=== PATIENT | female | born 1990 | race Two or more races ===

== ENCOUNTER 2024-10-27 10:54 | Emergency (ER) | payer MEDICAID, SELFPAY ==
[2024-10-27 11:18] VITALS: BP 146/87; PULSE 90; RESP 19; TEMP 37.3; O2SAT 99; BMI 34.7
--- NOTE | 2024-10-27 11:27 | XR_ITS ---
Examination: CT brain head without contrast. 2-D sagittal coronal reconstructions Date and time of exam:October 27, 2024 1138 hours INDICATIONS: Headaches vomiting beginning 2 days ago CTDI: vol (mGy):46.7 DLP: (mGycm):915 Technique: Multiple CT axial sections of the brain have been obtained, 5 mm slice thickness. Contrast has not been administered. 2-D sagittal, coronal reconstructions have been obtained Low dose protocols were performed. One or more of the following dose reduction techniques were used; automated exposure control, adjustment of the mA and/or KV according to patient size, use of iterative reconstruction technique. Findings: No significant ventricular enlargement. Intra-axial or extra-axial hemorrhage density is not seen. No mass effect or midline shift Basal cisterns are not remarkable. Fourth ventricle is midline. Cranial vault intact. Impression: Negative for acute hemorrhage, mass effect or midline shift Advise clinical correlation and follow-up accordingly
[2024-10-27 11:55] LABS: HCG Qualitative,Urine Negative
--- NOTE | 2024-10-27 12:21 | PD.EDHA ---
ED Headache RME/HPI General Chief Complaint: Headache Stated Complaint: LEON/VOMITING x 2 DAYS Time Seen by Provider: 10/27/24 11:16 Source: patient Arrival date/time: 10/27/24 10:54 This is a 34-year-old female presents to the emergency department with complaints of generalized headache. Patient does report that she had a head injury many years ago which resulted in a bump noted to the posterior aspect of her head. States since then she does have chronic headaches has never been diagnosed with migraines. does not take medication daily. Patient did not attempt any interventions or take any OTC medications prior to ED visit. Denies fever, chills no neck pain no meningeal symptoms. Mode of arrival: ambulatory Related Data Home Medications ?Medication ?Instructions ?Recorded ?Confirmed metformin 500 mg tablet 500 mg PO BID 07/18/18 09/07/18 vit no.95-ferrous 1 tab PO QDAY 08/01/18 09/07/18 fumarate 28 mg-folic acid 800 mcg tablet () Previous Rx's ?Medication ?Instructions ?Recorded ferrous sulfate 325 mg (65 mg 325 mg PO QDAY #30 tabs 01/01/14 iron) tablet Allergies Allergy/AdvReac Type Severity Reaction Status Date / Time No Known Allergies Allergy Verified 09/07/18 09:23 Review of Systems Review of Systems Systems Reviewed: All systems reviewed, normal except as documented Narrative Review of Systems: Gen: No fever, no chills, no weight loss, + intermittent occasional headaches EYES: No discharge, no visual changes, no pain HEENT: No ear pain, no congestion, no sore throat PULM: No shortness of breath, no cough, no congestion CV: No chest pain, no dyspnea on exertion, no palpitations GI: No nausea, no vomiting, no diarrhea, no pain, no constipation : No frequency, no urgency, no dysuria Musc/skel: No joint pain, no back pain Skin: No rash Psyc: No hallucinations, no depression Heme/Lymph: No easy bleeding or bruising tendencies Neuro: No weakness, ED Exam Narrative Physical exam: General: 34-year-old female awake and alert Sittiing in Exam table in no acute distress, answering questions appropriately HENT: normocephalic, mild alopecia noted, atraumatic, EOMI, PERRLA, moist mucous membranes Chest: chest wall is nontender Cardiac: regular rate and rhythm, normal S1 and S2, no murmurs, rubs, or gallops, capillary refill ?2 seconds Pulmonary: clear to auscultation bilaterally, no wheezing, crackles, or rhonchi Abdominal: active bowel sounds, soft, nontender, nondistended Neuro: A&OX3, CN II-XII intact, sensation grossly intact bilaterally in UE and LE. Skin: no rashes, no ecchymosis Ext: no lower extremity edema Course Quality Measures none Orders Category Date Time Status CT head/brain wo con Stat Exams 10/27/24 11:27 Completed HCG Qualitative,Urine Stat Lab 10/27/24 11:41 Completed Vital Signs Vital signs: Vital Signs Temperature 99.1 F 10/27/24 11:18 Pulse Rate 90 10/27/24 11:18 Respiratory Rate 19 10/27/24 11:18 Blood Pressure 146/87 H 10/27/24 11:18 Pulse Oximetry (%) 99 10/27/24 11:18 Oxygen Delivery Method Room Air 10/27/24 11:18 Headache MDM Narrative MDM Narrative:: Suspect tension type headache, rest and hydration, discussed good sleep hygiene, exercise, and stress reduction, tylenol/NSAIDs prn, CT brain today was negative for any acute abnormality Encourage regular meals 3 times a day. Avoid skipping meals. Encourage 6-8 glasses water daily. Keep hydrated. Limit TV screen time < 2 hours a day. Sleep 8-10 hours a day. . -1 Week follow-up headache with PCP. -f/u sooner improvement, consider imaging, ER precautions given. Patient data External records reviewed:: [facility] previous records Clinical information provided by:: patient Social determinants that could affect healthcare access:: none Patient has the following chronic illnesses:: None How is presenting disease/condition affected by chronic disease/condition?: no chronic disease Evaluation data The following diagnostics were reviewed and interpreted by me:: radiology exam(s) Lab and/or radiology exams considered but not ordered:: No Interpretation Summary: Examination: CT brain head without contrast. 2-D sagittal coronal reconstructions Date and time of exam:October 27, 2024 1138 hours INDICATIONS: Headaches vomiting beginning 2 days ago CTDI: vol (mGy):46.7 DLP: (mGycm):915 Technique: Multiple CT axial sections of the brain have been obtained, 5 mm slice thickness. Contrast has not been administered. 2-D sagittal, coronal reconstructions have been obtained Low dose protocols were performed. One or more of the following dose reduction techniques were used; automated exposure control, adjustment of the mA and/or KV according to patient size, use of iterative reconstruction technique. Findings: No significant ventricular enlargement. Intra-axial or extra-axial hemorrhage density is not seen. No mass effect or midline shift Basal cisterns are not remarkable. Fourth ventricle is midline. Cranial vault intact. Impression: Negative for acute hemorrhage, mass effect or midline shift Advise clinical correlation and follow-up accordingly Medications / Prescriptions Medications or Prescriptions considered but not ordered:: No Medication administrations:: No Consultations Consultation(s) initiated? (list below): No Diagnosis Differential diagnosis headache: migraine, tension headache, headache and sinusitis Most likely diagnosis given after review of the tests above:: Headache possible tension headache Admission Indicated Admission indicated?: not indicated Admission Request Was there a request for admission?: No Disposition Plan Disposition Plan: Discharge Discharge Attestation Discharge Attestation: The patient and all family members were given an opportunity to ask questions and understood the discharge instructions. Discharge instructions specifically effects, indications for sooner follow up or return to the emergency department, and the expected course of current diagnosis. Patient condition: Stable Discharge Plan Plan Patient Disposition: HOME (Self Care) Patient condition on transfer: Stable Prescriptions/Referrals Prescriptions/Med Rec: No Action ferrous sulfate 325 ( 65 )MG tablet 325 mg PO QDAY Qty: 30 1RF metformin 500 mg Tablet 500 mg PO BID PNV cmb#95-ferrous fumarate-FA [] 28 mg iron- 800 mcg Tablet 1 tab PO QDAY Referrals: Tammi Phillips MD [Primary Care Provider] - In 1 week Problem List Clinical Impression: Headache Patient/Caregiver Discharge Instructions Discharge Activity: activity as tolerated Education Materials: Self-Care for Headaches Additional Instructions: Patel tomograf?a computarizada del cerebro fue negativa para detectar anomal?as agudas hoy. Necesitas seguimiento con tu m?dico de cabecera tus katarina de levon pueden ser migra?osos Es posible que necesite pablo derivaci?n ambulatoria de neurolog?a. Regrese al departamento de emergencias si los s?ntomas empeoran y cambian de condici?n. Your CT of brain was negative for any acute abnormalities today. You need to follow-up with your primary doctor your headaches may be migrainous You might need a neurology referral outpatient. Return to the emergency department is any worsening symptoms change in condition. Print Language: [place] Stand Alone Forms: Juliane Award Info., Patient Portal Info Letter PA/RADIO TELEVISION ANNOUNCER Supervising Physician PA/RADIO TELEVISION ANNOUNCER Supervising Physician: Dr Townsend
== END 2024-10-27 13:20 | disposition home or self-care (01) ==
PROVIDERS: Nurse Practitioner Primary Care; Emergency Provider Emergency Medicine; PCP Obstetrics & Gynecology
DX: R51.9 Headache, unspecified (principal); R11.10 Vomiting, unspecified
CPT/HCPCS: 70450; 81025; 99284